=== PATIENT | male | born 1985 | race Caucasian/White ===

== ENCOUNTER 2019-09-14 16:51 | Emergency (ER) | payer OTHER ==
[2019-09-14 16:56] VITALS: TEMP 98.5
[2019-09-14] MEDS ORDERED: ONDANSETRON 4 MG/2 ML VIAL IVP STA (17:27)
[2019-09-14] MEDS ORDERED: SODIUM CHLORIDE 0.9% 500 ML 500 ML IV STA (17:27)
[2019-09-14] MEDS ORDERED: LORazepam 2 MG/ML INJ IV STA (17:28)
--- NOTE | 2019-09-14 17:29 | ED ---
Anxiety HPI - General Chief Complaint: Anxiety Stated Complaint: anxiety Time Seen by Provider: 09/14/19 17:10 Source: EMS, RN notes reviewed, old records reviewed Mode of arrival: EMS - History of Present Illness Initial Comments: This is a 34-year-old male presents here by EMS for evaluation of chest pain. Patient is having out of his bloody he did bring or some marijuana recent does not typically smoke marijuana (if some chest pain but then admits that he had chest pain for a few days. Chest pains some sharpness of the left side of his chest no radiation or shortness of breath he was a little sweaty when this happened tonight. No significant travel history or sick contacts cough or congestion. No medical history patient does not smoke, no high blood pressure or cholesterol no diabetes and no significant family history of heart disease per patient MD Complaint: anxiety, heart racing, other (Mild chest pain) -: days(s) (3) Symptoms: chest pain Place: home Previous History of Same: No Severity: mild Quality: intermittent Provoking factors: emotional stress (Smoking marijuana) Improves With: nothing Worsens With: nothing Associated symptoms: chest pain - Related Data Home Medications: Home Medications Medication Instructions Recorded Confirmed No Known Home Medications 02/19/14 02/19/14 Allergies/Adverse Reactions: Allergies Allergy/AdvReac Type Severity Reaction Status Date / Time venom-honey bee Allergy Unknown Verified 02/19/14 07:49 [bee venom (honey bee)] tramadol AdvReac Nausea Verified 09/14/19 16:56 Review of Systems ROS Statement: Those systems with pertinent positive or pertinent negative responses have been documented in the HPI. ROS Other: All systems not noted in ROS Statement are negative. Past Medical History Past Medical History: No Reported History History of Any Multi-Drug Resistant Organisms: None Reported Past Surgical History: No Surgical Hx Reported Past Psychological History: ADD/ADHD Smoking Status: Never smoker Past Alcohol Use History: Occasional Past Drug Use History: Marijuana General Exam Limitations: no limitations General appearance: alert, in no apparent distress, anxious Head exam: Present: atraumatic, normocephalic, normal inspection Eye exam: Present: normal appearance, PERRL, EOMI. Absent: scleral icterus, conjunctival injection, periorbital swelling ENT exam: Present: normal exam, mucous membranes moist Neck exam: Present: normal inspection. Absent: tenderness, meningismus, lymphadenopathy Respiratory exam: Present: normal lung sounds bilaterally. Absent: respiratory distress, wheezes, rales, rhonchi, stridor Cardiovascular Exam: Present: regular rate, normal rhythm, normal heart sounds. Absent: systolic murmur, diastolic murmur, rubs, gallop, clicks GI/Abdominal exam: Present: soft, normal bowel sounds. Absent: distended, tenderness, guarding, rebound, rigid Extremities exam: Present: normal inspection, full ROM, normal capillary refill. Absent: tenderness, pedal edema, joint swelling, calf tenderness Back exam: Present: normal inspection Neurological exam: Present: alert, oriented X3, CN II-XII intact Psychiatric exam: Present: normal affect, normal mood Skin exam: Present: warm, dry, intact, normal color. Absent: rash Course Vital Signs 09/14/19 09/14/19 09/14/19 16:53 18:41 20:31 Temperature 98.5 F Pulse Rate 71 83 77 Respiratory 19 16 20 Rate Blood Pressure 120/85 124/77 132/84 O2 Sat by Pulse 98 99 98 Oximetry - Reevaluation(s) Reevaluation #1: Medical records reviewed Reevaluation patient states chest pain is significantly improved if not resolved, no shortness of breath informed of testing questions are answered Medical Decision Making - Medical Decision Making 34 male DF for evaluation he did admit to smoking marijuana prior to arrival, patient was very anxious with some chest pain EKG is negative patient will hopefully patient symptoms improved with anxiolysis and can be discharged home - Lab Data Result diagrams: 09/14/19 17:39 09/14/19 17:39 Lab Results 09/14/19 09/14/19 09/14/19 Range/Units 17:39 17:39 17:39 WBC 10.4 (3.8-10.6) k/uL RBC 5.17 (4.30-5.90) m/uL Hgb 14.6 (13.0-17.5) gm/dL Hct 42.6 (39.0-53.0) % MCV 82.5 (80.0-100.0) fL MCH 28.3 (25.0-35.0) pg MCHC 34.3 (31.0-37.0) g/dL RDW 13.0 (11.5-15.5) % Plt Count 244 (150-450) k/uL Neutrophils % 81 % Lymphocytes % 13 % Monocytes % 4 % Eosinophils % 1 % Basophils % 0 % Neutrophils # 8.4 H (1.3-7.7) k/uL Lymphocytes # 1.3 (1.0-4.8) k/uL Monocytes # 0.5 (0-1.0) k/uL Eosinophils # 0.1 (0-0.7) k/uL Basophils # 0.0 (0-0.2) k/uL PT 10.7 (9.0-12.0) sec INR 1.0 (<1.2) APTT 21.7 L (22.0-30.0) sec D-Dimer 0.25 (<0.60) mg/L FEU Sodium 137 (137-145) mmol/L Potassium 4.1 (3.5-5.1) mmol/L Chloride 105 (98-107) mmol/L Carbon Dioxide 25 (22-30) mmol/L Anion Gap 7 mmol/L BUN 14 (9-20) mg/dL Creatinine 1.01 (0.66-1.25) mg/dL Est GFR (CKD-EPI)AfAm >90 (>60 ml/min/1.73 sqM) Est GFR (CKD-EPI)NonAf >90 (>60 ml/min/1.73 sqM) Glucose 123 H (74-99) mg/dL Calcium 9.9 (8.4-10.2) mg/dL Magnesium 1.8 (1.6-2.3) mg/dL Total Bilirubin 0.2 (0.2-1.3) mg/dL AST 28 (17-59) U/L ALT 35 (4-49) U/L Alkaline Phosphatase 67 (38-126) U/L Creatine Kinase 83 (55-170) U/L CK-MB (CK-2) (0.0-2.4) ng/mL Troponin I (0.000-0.034) ng/mL NT-Pro-B Natriuret Pep pg/mL Total Protein 6.7 (6.3-8.2) g/dL Albumin 4.1 (3.5-5.0) g/dL Lipase 54 (23-300) U/L 09/14/19 09/14/19 Range/Units 17:39 17:39 WBC (3.8-10.6) k/uL RBC (4.30-5.90) m/uL Hgb (13.0-17.5) gm/dL Hct (39.0-53.0) % MCV (80.0-100.0) fL MCH (25.0-35.0) pg MCHC (31.0-37.0) g/dL RDW (11.5-15.5) % Plt Count (150-450) k/uL Neutrophils % % Lymphocytes % % Monocytes % % Eosinophils % % Basophils % % Neutrophils # (1.3-7.7) k/uL Lymphocytes # (1.0-4.8) k/uL Monocytes # (0-1.0) k/uL Eosinophils # (0-0.7) k/uL Basophils # (0-0.2) k/uL PT (9.0-12.0) sec INR (<1.2) APTT (22.0-30.0) sec D-Dimer (<0.60) mg/L FEU Sodium (137-145) mmol/L Potassium (3.5-5.1) mmol/L Chloride (98-107) mmol/L Carbon Dioxide (22-30) mmol/L Anion Gap mmol/L BUN (9-20) mg/dL Creatinine (0.66-1.25) mg/dL Est GFR (CKD-EPI)AfAm (>60 ml/min/1.73 sqM) Est GFR (CKD-EPI)NonAf (>60 ml/min/1.73 sqM) Glucose (74-99) mg/dL Calcium (8.4-10.2) mg/dL Magnesium (1.6-2.3) mg/dL Total Bilirubin (0.2-1.3) mg/dL AST (17-59) U/L ALT (4-49) U/L Alkaline Phosphatase (38-126) U/L Creatine Kinase (55-170) U/L CK-MB (CK-2) 0.3 (0.0-2.4) ng/mL Troponin I <0.012 (0.000-0.034) ng/mL NT-Pro-B Natriuret Pep 25 pg/mL Total Protein (6.3-8.2) g/dL Albumin (3.5-5.0) g/dL Lipase (23-300) U/L - EKG Data -: EKG Interpreted by Me (EKG shows sinus rhythm rate of 68, NH 162, QRS 96, QTC 395) - Radiology Data Radiology results: report reviewed (Chest x-ray is negative for acute disease), image reviewed Disposition Clinical Impression: Acute anxiety, Chest pain Disposition: HOME SELF-CARE Condition: Good Instructions (If sedation given, give patient instructions): Chest Pain (ED), Generalized Anxiety Disorder (ED) Is patient prescribed a controlled substance at d/c from ED?: No Referrals: None,Stated [Primary Care Provider] - 1-2 days
[2019-09-14 17:53] LABS: Basophils % (A) 0 %; Eosinophils # (A) 0.1 k/uL (0-0.7); Eosinophils % (A) 1 %; HCT 42.6 % (39.0-53.0); HGB 14.6 gm/dL (13.0-17.5); Lymphocytes # (A) 1.3 k/uL (1.0-4.8); Lymphocytes % (A) 13 %; MCH 28.3 pg (25.0-35.0); MCHC 34.3 g/dL (31.0-37.0); MCV 82.5 fL (80.0-100.0); Mean Platelet Volume 6.8; Monocytes # (A) 0.5 k/uL (0-1.0); Monocytes % (A) 4 %; Neutrophils # (A) 8.4 k/uL (1.3-7.7); Neutrophils % (A) 81 %; Platelet Count 244 k/uL (150-450); RBC 5.17 m/uL (4.30-5.90); WBC 10.4 k/uL (3.8-10.6)
[2019-09-14 18:08] LABS: ALT 35 U/L (4-49); AST 28 U/L (17-59); African American GFR (CKD) >90 (>60 ml/min/1.73 sqM); Albumin 4.1 g/dL (3.5-5.0); Alkaline Phosphatase 67 U/L (38-126); Anion Gap 7 mmol/L; Blood Urea Nitrogen 14 mg/dL (9-20); Calcium 9.9 mg/dL (8.4-10.2); Carbon Dioxide 25 mmol/L (22-30); Chloride 105 mmol/L (98-107); Creatine Kinase 83 U/L (55-170); Glucose 123 mg/dL (74-99); Magnesium 1.8 mg/dL (1.6-2.3); Non-African American GFR(CKD) >90 (>60 ml/min/1.73 sqM); Potassium 4.1 mmol/L (3.5-5.1); Sodium 137 mmol/L (137-145); Total Bilirubin 0.2 mg/dL (0.2-1.3); Total Protein 6.7 g/dL (6.3-8.2)
--- NOTE | 2019-09-14 18:17 | XR ---
EXAMINATION TYPE: XR chest 2V DATE OF EXAM: 09/14/2019 COMPARISON: 01/13/2011 HISTORY: Chest pain TECHNIQUE: 2 views FINDINGS: Heart and mediastinum are normal. Lungs are clear. Diaphragm is normal. Bony thorax appears normal. IMPRESSION: Normal chest. No change.
[2019-09-14 18:20] LABS: Creatine Kinase MB 0.3 ng/mL (0.0-2.4); Troponin I <0.012 ng/mL (0.000-0.034)
[2019-09-14 18:34] LABS: D-Dimer 0.25 mg/L FEU (<0.60); Prothrombin Time 10.7 sec (9.0-12.0)
[2019-09-14] MEDS ORDERED: KETOROLAC 30 MG/ML 1 ML VIAL IVP STA (18:37)
[2019-09-14 19:08] LABS: Partial Thromboplastin Time 21.7 sec (22.0-30.0)
[2019-09-14 20:36] VITALS: BP 132/84; PULSE 77; RESP 20
== END 2019-09-14 20:40 | disposition home or self-care (01) ==
LOC: EC 16:51
DX: F41.9 Anxiety disorder, unspecified (principal); R07.9 Chest pain, unspecified; F12.90 Cannabis use, unspecified, uncomplicated; Z91.030 Bee allergy status; Z88.5 Allergy status to narcotic agent
CPT/HCPCS: 99285; 96374; 96361; 36415; 93005; 85379; 83880; 80053; 82550; 82553; 83690; 83735; 84484; 85025; 85610; 85730; 71046; J2405

== ENCOUNTER 2022-06-10 16:16 | Emergency (ER) | payer OTHER ==
[2022-06-10 16:34] VITALS: RESP 18; TEMP 98
[2022-06-10] MEDS ORDERED: ORPHENADRINE 30 MG/ML 2 ML VIAL IM STA (18:26)
[2022-06-10] MEDS ORDERED: KETOROLAC 15 MG/ML 1 ML VIAL IM STA (18:26)
--- NOTE | 2022-06-10 19:04 | ED ---
Upper Extremity HPI - General Chief Complaint: Extremity Injury, Upper Stated Complaint: rt shoulder pain Time Seen by Provider: 06/10/22 18:16 Source: patient Mode of arrival: ambulatory Limitations: no limitations - History of Present Illness Initial Comments: Patient is a 36-year-old male presenting with chief complaint of right shoulder pain. Pain has been ongoing for the past week. Patient does not remember any distinct injury, however he has a very physical job and believes he may have injured it with overuse. Pain starts at the superior aspect of the shoulder wraps around posteriorly to the shoulder blade. Worse with range of motion. It extends up to the right side of the neck. No numbness or tingling. No radiation of pain down the arm. No joint swelling or redness. No fever or chills. No nausea or vomiting. Chest pain, difficulty breathing, palpitations, weakness, lightheadedness, dizziness, headache, vision or hearing changes. - Related Data Home Medications Medication Instructions Recorded Confirmed No Known Home Medications 02/19/14 02/19/14 Allergies Allergy/AdvReac Type Severity Reaction Status Date / Time venom-honey bee Allergy Unknown Verified 06/10/22 16:33 [bee venom (honey bee)] tramadol AdvReac Nausea Verified 06/10/22 16:33 Review of Systems ROS Statement: Those systems with pertinent positive or pertinent negative responses have been documented in the HPI. ROS Other: All systems not noted in ROS Statement are negative. Past Medical History Past Medical History: No Reported History History of Any Multi-Drug Resistant Organisms: None Reported Past Surgical History: No Surgical Hx Reported Past Psychological History: ADD/ADHD Past Alcohol Use History: Occasional Past Drug Use History: Marijuana General Exam Limitations: no limitations General appearance: alert, in no apparent distress Head exam: Present: atraumatic, normocephalic, normal inspection Eye exam: Present: normal appearance Neck exam: Present: normal inspection Extremities exam: Present: normal inspection, tenderness. Absent: full ROM Back exam: Present: muscle spasm Neurological exam: Present: alert, oriented X3, CN II-XII intact Psychiatric exam: Present: normal affect, normal mood Skin exam: Present: warm, dry, intact, normal color. Absent: rash Course Vital Signs 06/10/22 06/10/22 16:30 19:39 Temperature 98 F Pulse Rate 124 H 86 Respiratory 18 18 Rate Blood Pressure 144/82 128/70 O2 Sat by Pulse 97 97 Oximetry Medical Decision Making - Medical Decision Making Patient is a 36-year-old male presenting with chief complaint of right shoulder pain. On physical examination pain is worse with range of motion, appears consistent with muscle spasm on palpation. X-ray shows no acute process by my interpretation, radiologist report is reviewed which shows no acute process. Patient is given pain medication, on reassessment he reports improvement in his symptoms. Patient has cyclobenzaprine at home, instructed to continue taking and avoid use before driving or operating heavy machinery as it may cause drowsiness. Provided with Tylenol 3 starter pack for breakthrough pain. Use Motrin as needed. Follow-up with PCP. Report back to ER with any new or worsening symptoms. Discussed return parameters and answered all questions. Patient conveyed verbal understanding and agreed to the plan. I discussed this case in detail with my attending Dr. Erwin Sutherland Clinical Impression: Strain of shoulder Disposition: HOME SELF-CARE Condition: Good Instructions (If sedation given, give patient instructions): Rotator Cuff Injury (ED), Shoulder Sprain (ED) Additional Instructions: Follow-up with PCP, follow-up with orthopedics if needed. Report back to ER with any new or worsening symptoms. Take medication as prescribed. Take Motrin and Tylenol as needed for pain control. Do not combine [id number] Tylenol and Tylenol 3. Utilize heat and ice. Rest and utilize sling as needed. Is patient prescribed a controlled substance at d/c from ED?: No Referrals: Dottie Hutchinson MD [Primary Care Provider] - 1-2 days Kellie Campos DO [Doctor of Osteopathic Medicine] - 1-2 days Time of Disposition: 19:21
--- NOTE | 2022-06-10 19:04 | XR ---
EXAMINATION TYPE: XR shoulder complete RT DATE OF EXAM: 06/10/2022 COMPARISON: NONE HISTORY: Pain TECHNIQUE: Shoulder examined in 3 projections FINDINGS: The humeral head articulates with the glenoid. The acromio-clavicular junction is normal. No acute fractures or dislocations are evident. A follow up study can be performed 7-10 days from acute trauma for continued pain. IMPRESSION: 1. No acute osseous abnormality right shoulder
[2022-06-10] MEDS ORDERED: ACET/COD 300 MG/30 MG STARTER PACK 6 TAB BTL PO STA (19:18)
[2022-06-10 19:40] VITALS: BP 128/70; PULSE 86
== END 2022-06-10 19:40 | disposition home or self-care (01) ==
LOC: EC 16:16
DX: M70.811 Other soft tissue disorders related to use, overuse and pressure, right shoulder (principal); F90.9 Attention-deficit hyperactivity disorder, unspecified type; F12.90 Cannabis use, unspecified, uncomplicated
CPT/HCPCS: 73030; 99283; 96372 ×2; J2360; J1885

== ENCOUNTER 2024-05-03 02:57 | Emergency (ER) | payer OTHER ==
[2024-05-03 03:03] VITALS: RESP 20
[2024-05-03] MEDS: KETOROLAC 15 MG/ML 1 ML VIAL IM STA (03:34)
[2024-05-03] MEDS: ORPHENADRINE 30 MG/ML 2 ML VIAL IM STA (03:38)
[2024-05-03] MEDS: LIDOCAINE 4% PATCH TOPICAL ONE (03:39)
[2024-05-03] MEDS: DEXAMETHASONE SOD PHOSPHATE 10 MG/ML 1 ML VIAL IM STA (04:30)
[2024-05-03] MEDS: HYDROcodone/APAP 7.5-325MG 1 EACH TAB PO ONE (04:34)
--- NOTE | 2024-05-03 04:43 | ED ---
Upper Extremity HPI - General Source: patient Mode of arrival: ambulatory Limitations: no limitations <John Ballesteros - Last Filed: 05/07/24 18:17> <Antionette Ch - Last Filed: 05/10/24 11:23> - General Chief Complaint: Extremity Injury, Upper Stated Complaint: shoulder pain Time Seen by Provider: 05/03/24 03:06 - History of Present Illness Initial Comments: 38-year-old male presenting with chief complaint of right shoulder pain. Pain started yesterday after the patient woke up. He denies any new injury or t rauma. Pain has been getting worse. Patient takes gabapentin at home regularly for chronic pain, states that this was not helping his pain. He also took a Vicodin 10 mg which also did not alleviate the pain. No new numbness or tingling. No weakness. No fevers or chills. No joint swelling or obvious deformity. Patient does have increased pain with movement. There is some radiation of pain into the neck (John Ballesteros) - Related Data Home Medications Medication Instructions Recorded Confirmed No Known Home Medications 02/19/14 02/19/14 Allergies Allergy/AdvReac Type Severity Reaction Status Date / Time venom-honey bee Allergy Unknown Verified 05/03/24 02:59 [bee venom (honey bee)] tramadol AdvReac Nausea Verified 05/03/24 02:59 Review of Systems ROS Other: All systems not noted in ROS Statement are negative. <John Ballesteros - Last Filed: 05/07/24 18:17> ROS Other: All systems not noted in ROS Statement are negative. <Antionette Ch - Last Filed: 05/10/24 11:23> ROS Statement: Those systems with pertinent positive or pertinent negative responses have been documented in the HPI. Past Medical History Past Medical History: No Reported History Additional Past Medical History / Comment(s): back pain History of Any Multi-Drug Resistant Organisms: None Reported Past Surgical History: No Surgical Hx Reported Past Psychological History: ADD/ADHD Smoking Status: Never smoker Past Alcohol Use History: Occasional Past Drug Use History: Marijuana <John Ballesteros - Last Filed: 05/07/24 18:17> General Exam Limitations: no limitations General appearance: alert, in no apparent distress Head exam: Present: atraumatic, normocephalic, normal inspection Eye exam: Present: normal appearance, EOMI Neck exam: Present: normal inspection, tenderness (Right-sided paraspinal muscle tenderness with no midline tenderness) Respiratory exam: Absent: respiratory distress Cardiovascular Exam: Present: regular rate Right Shoulder Exam: Present: normal inspection, tenderness. Absent: full ROM, swelling, deformity, erythema Vascular: Present: radial pulse (2+). Absent: vascular compromise Neurological exam: Present: alert, oriented X3 Expanded Motor strength exam: RUE: 5, LUE: 5 Psychiatric exam: Present: normal affect, normal mood Skin exam: Present: warm, dry <John Ballesteros - Last Filed: 05/07/24 18:17> Course Vital Signs 05/03/24 05/03/24 03:00 06:29 Temperature 97.3 F L 97.5 F L Pulse Rate 65 71 Respiratory 20 20 Rate Blood Pressure 154/93 144/90 O2 Sat by Pulse 100 100 Oximetry Medical Decision Making <John Ballesteros - Last Filed: 05/07/24 18:17> <Antionette Ch - Last Filed: 05/10/24 11:23> - Medical Decision Making Was pt. sent in by a medical professional or institution (, PA, SANDWICH MACHINE OPERATOR, urgent care, hospital, or assisted...) When possible be specific @ -[No] Did you speak to anyone other than the patient for history (EMS, parent, family, police, friend...)? What history was obtained from this source @ -[No] Did you review nursing and triage notes (agree or disagree)? Why? @ -[I reviewed and agree with nursing and triage notes] Were old charts reviewed (outside hosp., previous admission, EMS record, old EKG, old radiological studies, urgent care reports/EKG's, assisted records)? Report findings @ -[No old charts were reviewed] Differential Diagnosis (chest pain, altered mental status, abdominal pain women, abdominal pain men, vaginal bleeding, weakness, fever, dyspnea, syncope, headache, dizziness, GI bleed, back pain, seizure, CVA, palpatations, mental health, musculoskeletal)? @ -Differential Musculoskeletal Muscular strain, contusion, ligament sprain, fracture, arthritis, septic arthritis, bursitis, cellulitis, muscle spasm, nerve compression, DVT, arterial occlusion, herpes zoster, electrolyte abnormality, tumor.... This is not meant to be in all inclusive list EKG interpreted by me (3pts min.). @ -[As above] X-rays interpreted by me (1pt min.). @ -[None done] CT interpreted by me (1pt min.). @ -[None done] U/S interpreted by me (1pt. min.). @ -[None done] What testing was considered but not performed or refused? (CT, X-rays, U/S, labs)? Why? @ -[None] What meds were considered but not given or refused? Why? @ -[None] Did you discuss the management of the patient with other professionals (professionals i.e. , PA, SANDWICH MACHINE OPERATOR, lab, RT, psych nurse, social insurance analyst, clothing sales assistant, teacher, audit officer, shoe caser)? Give summary @ -[No] Was smoking cessation discussed for >3mins.? @ -[No] Was critical care preformed (if so, how long)? @ -[No] Were there social determinants of health that impacted care today? How? (Homel essness, low income, unemployed, alcoholism, drug addiction, transportation, low edu. Level, literacy, decrease access to med. care, care home, rehab)? @ -[No] Was there de-escalation of care discussed even if they declined (Discuss DNR or withdrawal of care, Hospice)? DNR status @ -[No] What co-morbidities impacted this encounter? (DM, HTN, Smoking, COPD, CAD, Cancer, CVA, ARF, Chemo, Hep., AIDS, mental health diagnosis, sleep apnea, morbid obesity)? @ -[None] Was patient admitted / discharged? Hospital course, mention meds given and route, prescriptions, significant lab abnormalities, going to OR and other pertinent info. @ -38-year-old male presenting with chief complaint of right shoulder pain. No new injury or trauma. On physical exam she has full range of motion at the level of the elbow wrist and fingers. Increased pain with range of motion of the shoulder. He does have some paraspinal muscle tenderness to the back, no midline tenderness. Patient is given Decadron, Toradol, lidocaine patch, Norflex, and norco. On reassessment he reports that his pain has not improved. X-rays ordered. Patient is refusing any additional pain medication. Patient has been optimized. Dr. Ch pending x-ray results. Anticipating discharge instructions are uploaded, however subject to change Undiagnosed new problem with uncertain prognosis? @ -[No] Drug Therapy requiring intensive monitoring for toxicity (Heparin, Nitro, Insulin, Cardizem)? @ -[No] Were any procedures done? @ -[No] Diagnosis/symptom? @ -[default] Acute, or Chronic, or Acute on Chronic? @ -[default] Uncomplicated (without systemic symptoms) or Complicated (systemic symptoms)? @ -[default] Side effects of treatment? @ -[No] Exacerbation, Progression, or Severe Exacerbation? @ -[No] Poses a threat to life or bodily function? How? (Chest pain, [place], MS, pneumonia, PE, COPD, DKA, ARF, appy, cholecystitis, CVA, Diverticulitis, Homicidal, Suicidal, threat to staff... and all critical care pts) @ -[No] (John Ballesteros) Pt signed out to myself pending completion of XR. Anticipated discharge already discussed with pt by [facility]. Reviewed XR, showed no acute process. I see no signs of fracture or dislocation on XR on my independent review. Pt discharged for outpatient follow up. (Antionette Ch) Disposition Is patient prescribed a controlled substance at d/c from ED?: No <John Ballesteros - Last Filed: 05/07/24 18:17> <Antionette Ch - Last Filed: 05/10/24 11:23> Clinical Impression: Shoulder pain Disposition: HOME SELF-CARE Condition: Good Instructions (If sedation given, give patient instructions): Shoulder Pain (ED) Additional Instructions: You need to follow-up with orthopedics. Report back to ER with any new or worsening symptoms. Referrals: Dottie Hutchinson MD [Primary Care Provider] - 1-2 days Luigi Linn MD [STAFF PHYSICIAN] - 1-2 days
--- NOTE | 2024-05-03 06:00 | XR ---
EXAM: XR Right Shoulder Complete, 2 or More Views CLINICAL HISTORY: nontraumatic right shoulder pain that started yesterday after pt woke , getting progressively worse. TECHNIQUE: Two or more views of the right shoulder. COMPARISON: 06/10/22 FINDINGS: Bones/joints: No fracture or dislocation. Soft tissues: Unremarkable. IMPRESSION: Normal right shoulder x-rays.
[2024-05-03 06:31] VITALS: BP 144/90; PULSE 71; TEMP 97.5
== END 2024-05-03 06:31 | disposition home or self-care (01) ==
LOC: EC 02:57
DX: M25.511 Pain in right shoulder (principal); Z91.030 Bee allergy status; Z88.5 Allergy status to narcotic agent
CPT/HCPCS: 73030; 99283; 96372 ×3; J1100; J2360; J1885